=== PATIENT | male | born 1940 | race Caucasian/White ===

== ENCOUNTER → 2017-01-07 | Outpatient (CLI) | payer BC, MEDICARE | END | disposition home or self-care (01) | LOC: CFH 08:11 | PROVIDERS: ATTEND Internal Medicine Cardiovascular Disease | DX: I45.10 Unspecified right bundle-branch block (principal); R94.31 Abnormal electrocardiogram [ECG] [EKG]; Z95.5 Presence of coronary angioplasty implant and graft | CPT/HCPCS: 78452; 93017; A9502 ==

== ENCOUNTER 2017-01-21 11:30 | Day surgery (SDC) | payer MEDICAID, MEDICARE ==
[2017-01-20 14:46] VITALS: BP 146/95
[2017-01-20 15:39] LABS: HEMATOCRIT 52.5 % (39.2-51.8); WHITE BLOOD COUNT 8.6 x10^3/uL (3.4-10)
[~2017-01-21] VITALS: Ht 181.6 cm; Wt 93.1 kg
[~2017-01-21 11:30] MED LIST: ALLO100T30 PO; ASPI-496 PO; MULT-658 PO; ROSU20TA PO; WARF5TAB7 PO; WARF7.5T6 PO
[2017-01-21] MEDS ORDERED: SODIUM CHLORIDE 0.9% 1,000 ML IV SCH (12:13)
[2017-01-21] MEDS ORDERED: FENTANYL PF 100 MCG/2ML ONE (13:01)
[2017-01-21] MEDS ORDERED: MIDAZOLAM 1 MG/ML, 5ML ONE ×2 (13:01→13:03)
[2017-01-21] MEDS ORDERED: VERAPAMIL 2.5 MG/ML, 2ML ONE (13:03)
[2017-01-21] MEDS ORDERED: LIDOCAINE 2%, 20ML ONE (13:04)
[2017-01-21] MEDS ORDERED: HEPARIN 1,000 UNITS/ML, 10ML ONE (13:04)
[2017-01-21] MEDS ORDERED: SODIUM CHLORIDE 0.9% 500 ML IV SCH (14:30)
== END 2017-01-21 17:00 ==
LOC: CACL 11:30
PROVIDERS: ATTEND Internal Medicine Cardiovascular Disease
DX: I25.5 Ischemic cardiomyopathy (principal); E78.2 Mixed hyperlipidemia; I10 Essential (primary) hypertension; Z95.5 Presence of coronary angioplasty implant and graft; Z95.2 Presence of prosthetic heart valve; Z79.82 Long term (current) use of aspirin
CPT/HCPCS: 36415; 85025; 85610; 85730; 93306; 93454; 99156; C1894; J1644; J2250; J3010; J3490; Q9967

== ENCOUNTER → 2018-02-24 | Outpatient (CLI) | payer MEDICARE ==
[~2018-02-24] MED LIST changes: +WARF-36 PO; -WARF5TAB7 PO; +WARF7.5T46 PO; -WARF7.5T6 PO
== END | disposition home or self-care (01) ==
LOC: CFH 10:47
PROVIDERS: ATTEND Internal Medicine Cardiovascular Disease
DX: Z95.2 Presence of prosthetic heart valve (principal); E78.5 Hyperlipidemia, unspecified; I25.2 Old myocardial infarction
CPT/HCPCS: 93306

== ENCOUNTER → 2020-02-02 | Outpatient (CLI) | payer MEDICARE ==
[~2020-02-02] MED LIST changes: -ROSU20TA PO; +ROSU20TA2 PO
[2020-02-02 14:34] LABS: INTERNATIONAL NORMALIZED RATIO 2.22 (0.93-1.1); PROTHROMBIN TIME 23.1 Seconds (9.6-11.5)
== END | disposition home or self-care (01) ==
LOC: LAB 14:10
PROVIDERS: ATTEND Internal Medicine Cardiovascular Disease
DX: Z51.81 Encounter for therapeutic drug level monitoring (principal); Z79.01 Long term (current) use of anticoagulants; Z95.2 Presence of prosthetic heart valve
CPT/HCPCS: 36415; 85610

== ENCOUNTER → 2020-02-02 | Outpatient (CLI) | payer MEDICARE | END | disposition home or self-care (01) | LOC: CFH 12:50 | PROVIDERS: ATTEND Internal Medicine Cardiovascular Disease | DX: I34.8 Other nonrheumatic mitral valve disorders (principal); Z95.2 Presence of prosthetic heart valve; E78.5 Hyperlipidemia, unspecified; I25.2 Old myocardial infarction | CPT/HCPCS: 93306 ==

== ENCOUNTER 2020-09-16 09:17 | Outpatient (CLI) | payer MEDICARE, OTHER ==
[2020-09-16] MEDS ORDERED: L.AC1CAP6 PO (09:48)
[2020-09-16] MEDS ORDERED: MAGN400T36 PO (09:48)
[2020-09-16 10:31] LABS: BASOPHILS % (AUTO) 1 % (0-1); EOSINOPHILS % (AUTO) 3 % (1-7); LYMPHOCYTES % (AUTO) 29 % (22-44); MEAN CORPUSCULAR HEMOGLOBIN 33.1 pg (27.5-34.5); MEAN CORPUSCULAR HGB CONC 34.8 g/dL (33.2-36.2); MEAN PLATELET VOLUME 8.6 fL (7.4-10.4); MONOCYTES % (AUTO) 11 % (2-9); NEUTROPHILS % (AUTO) 56 % (42-75); PLATELET COUNT 205 x10^3/uL (130-400); RED BLOOD COUNT 5.11 x10^6/uL (4.38-5.82); RED CELL DISTRIBUTION WIDTH 13.9 % (9.4-14.8)
[2020-09-16 10:41] LABS: CALCIUM 8.8 mg/dL (8.5-10.1); CREATININE 0.94 mg/dL (0.7-1.3)
[2020-09-16 10:44] LABS: INTERNATIONAL NORMALIZED RATIO 1.57 (0.93-1.1); PROTHROMBIN TIME 16.7 Seconds (9.6-11.5)
[2020-09-16 10:49] LABS: ANION GAP 5 mmol/L (5-15); CHLORIDE 107 mmol/L (98-107)
[2020-09-16 10:59] LABS: MICROSCOPIC NOT IND
[2020-09-22] MEDS ORDERED: OXYC1TAB12 PO (07:52)
== END 2020-09-16 23:59 | disposition home or self-care (01) ==
LOC: STAR 09:17
PROVIDERS: ATTEND Neurological Surgery
DX: Z01.810 Encounter for preprocedural cardiovascular examination (principal); Z01.811 Encounter for preprocedural respiratory examination; Z01.818 Encounter for other preprocedural examination; R79.1 Abnormal coagulation profile; R94.31 Abnormal electrocardiogram [ECG] [EKG]; R82.90 Unspecified abnormal findings in urine; M54.16 Radiculopathy, lumbar region; M48.061 Spinal stenosis, lumbar region without neurogenic claudication; M51.37 Other intervertebral disc degeneration, lumbosacral region; M48.07 Spinal stenosis, lumbosacral region; M25.78 Osteophyte, vertebrae; Z95.0 Presence of cardiac pacemaker; Z20.822 Contact with and (suspected) exposure to COVID-19
CPT/HCPCS: 36415; 71046; 72110; 80048; 81003; 85025; 85610; 85730; 93005; U0003

== ENCOUNTER 2020-09-20 05:37 | Inpatient (IN) | payer MEDICARE, OTHER ==
[2020-09-19 14:06] LABS: INTERNATIONAL NORMALIZED RATIO 1.04 (0.93-1.1); PROTHROMBIN TIME 11.1 Seconds (9.6-11.5)
[~2020-09-20] VITALS: Ht 180.3 cm; Wt 100.8 kg
[~2020-09-20 05:37] MED LIST changes: +L.AC1CAP6 PO; +MAGN400T36 PO
[2020-09-20] MEDS ORDERED: EPINEPHRINE 1 MG/ML, 1ML ONE (06:22)
[2020-09-20] MEDS ORDERED: VANCOMYCIN 1,000 MG ONE (06:22)
[2020-09-20] MEDS ORDERED: BUPIVACAINE 0.25% ONE (06:22)
[2020-09-20] MEDS ORDERED: BACITRACIN 50,000 UNIT ONE (06:22)
[2020-09-20] MEDS ORDERED: BUPIVACAINE/PF 0.5% ONE (06:22)
[2020-09-20 06:28] VITALS: BP 133/60
[2020-09-20] MEDS ORDERED: LACTATED RINGERS 1,000 ML IV SCH (06:30)
[2020-09-20] MEDS ORDERED: CHLORHEXIDINE 15 ML UDC PO ONE (06:30)
[2020-09-20] MEDS ORDERED: FENTANYL PF 250 MCG/5ML ONE (06:47)
[2020-09-20] MEDS ORDERED: DEXAMETHASONE 4 MG/ML, 1ML ONE (06:48)
[2020-09-20] MEDS ORDERED: SUCCINYLCHOLINE 20 MG/ML, 10ML ONE (06:49)
[2020-09-20] MEDS ORDERED: ROCURONIUM 10MG/ML,5ML ONE (06:49)
[2020-09-20] MEDS ORDERED: EPHEDRINE 50 MG/ML, 1ML ONE (07:31)
[2020-09-20] MEDS ORDERED: FENTANYL PF 100 MCG/2ML ONE ×2 (08:45→10:00)
[2020-09-20] MEDS ORDERED: BUPIVACAINE/PF 0.25% EPIDPUSH ONE (08:48)
[2020-09-20] MEDS ORDERED: FENTANYL PF 100 MCG/2ML EPIDPUSH ONE (08:49)
[2020-09-20] MEDS ORDERED: NEOSTIGMINE 1 MG/ML, 10ML ONE (09:21)
[2020-09-20] MEDS ORDERED: GLYCOPYRROLATE 0.2MG/1ML, 5ML ONE (09:21)
[2020-09-20] MEDS ORDERED: SENNA/DOCUSATE TABLET PO PRN (10:00)
[2020-09-20] MEDS ORDERED: ACETAMINOPHEN 325 MG TABLET PO PRN (10:00)
[2020-09-20] MEDS ORDERED: HYDROcodone/APAP 10/325 MG TABLET PO PRN (10:00)
[2020-09-20] MEDS ORDERED: MEPERIDINE/PF 25MG/0.5ML IVPush PRN (10:00)
[2020-09-20] MEDS ORDERED: HYDROcodone/APAP 5/325 TABLET PO PRN (10:00)
[2020-09-20] MEDS ORDERED: LABETALOL 5MG/ML, 20ML IVPush PRN (10:00)
[2020-09-20] MEDS ORDERED: METHOCARBAMOL 1,000 MG in DEXTROSE 5% 100 ML IV ONE (10:00)
[2020-09-20] MEDS ORDERED: PROMETHAZINE 25 MG/ML, 1ML IM PRN (10:00)
[2020-09-20] MEDS ORDERED: PROMETHAZINE 12.5 MG SUPP PR PRN (10:00)
[2020-09-20] MEDS ORDERED: morphine SULFATE 10 MG/ML, 1ML IVPush PRN (10:00)
[2020-09-20] MEDS ORDERED: PHARMACY MAY ADJ FOR RENAL FX MC PRN (10:00)
[2020-09-20] MEDS ORDERED: MAGNESIUM HYDROXIDE 8%, 30ML UDC PO PRN (10:00)
[2020-09-20] MEDS ORDERED: hydrALAzine 20 MG/ML, 1ML IV PRN (10:00)
[2020-09-20] MEDS ORDERED: CYCLOBENZAPRINE 10 MG TABLET PO PRN (10:00)
[2020-09-20] MEDS ORDERED: PROMETHAZINE 25 MG/ML, 1ML IVPush PRN (10:00)
[2020-09-20] MEDS ORDERED: ALBUTEROL SULFATE 2.5 MG/3 ML NPPB PRN (10:00)
[2020-09-20] MEDS ORDERED: LABETALOL 5MG/ML, 20ML IV PRN (10:00)
[2020-09-20] MEDS ORDERED: DIPHENHYDRAMINE 50 MG/ML, 1ML IVPush PRN ×2 (10:00)
[2020-09-20] MEDS ORDERED: ONDANSETRON 2MG/ML, 2ML IVPush PRN ×2 (10:00)
[2020-09-20] MEDS ORDERED: FENTANYL PF 100 MCG/2ML IV PRN (10:00)
[2020-09-20] MEDS ORDERED: DIPHENHYDRAMINE 50 MG CAPSULE PO PRN (10:00)
[2020-09-20] MEDS ORDERED: HYDROmorphone 1 MG/ML, 1ML INJ IVPush PRN (10:00)
[2020-09-20] MEDS ORDERED: EPHEDRINE 50 MG/ML, 1ML IVPush PRN (10:00)
[2020-09-20] MEDS ORDERED: DIPHENHYDRAMINE 50 MG/ML, 1ML IM PRN (10:00)
[2020-09-20] MEDS ORDERED: OXYcodone 5 MG/5 ML ORAL.SOL UDC PO PRN (10:00)
[2020-09-20] MEDS: CEFAZOLIN PMX 1GM/50ML 50 ML IVPB SCH ×2 (11:44→18:28)
[2020-09-20 13:29] VITALS: BP 101/58
[2020-09-20] MEDS: OXYcodone/APAP 5/325MG TABLET PO PRN (18:28)
[2020-09-20] MEDS: NS + 20MEQ KCL 1,000 ML IV SCH (18:29)
[2020-09-20 18:39] VITALS: BP 100/52
[2020-09-20] MEDS: SODIUM CHLORIDE FLUSH 10ML SYR IVF SCH (21:00)
[2020-09-21 00:09] VITALS: BP 101/59
[2020-09-21] MEDS: NS + 20MEQ KCL 1,000 ML IV SCH ×3 (02:00→22:00)
[2020-09-21] MEDS: OXYcodone/APAP 5/325MG TABLET PO PRN ×7 (04:17→23:20)
[2020-09-21 06:40] VITALS: BP 104/61
[2020-09-21] MEDS: ENOXAPARIN 40 MG/0.4 ML SQ SCH (06:51)
[2020-09-21] MEDS: METHOCARBAMOL 750 MG TABLET PO PRN ×3 (08:34→17:54)
[2020-09-21] MEDS: ALLOPURINOL 100 MG TABLET PO SCH (08:34)
[2020-09-21] MEDS: LACTOBACILLUS CHEW TABLET PO SCH (08:34)
[2020-09-21] MEDS: MAGNESIUM OXIDE 400 MG TABLET PO SCH (08:34)
[2020-09-21] MEDS: SODIUM CHLORIDE FLUSH 10ML SYR IVF SCH ×2 (08:37→20:05)
[2020-09-21 12:25] VITALS: BP 97/63
[2020-09-21 19:41] VITALS: BP 108/68
[2020-09-22] MEDS: METHOCARBAMOL 750 MG TABLET PO PRN ×2 (02:03→11:27)
[2020-09-22 02:06] VITALS: BP 118/68
[2020-09-22] MEDS: OXYcodone/APAP 5/325MG TABLET PO PRN ×3 (03:51→11:27)
[2020-09-22] MEDS: ENOXAPARIN 40 MG/0.4 ML SQ SCH (06:32)
[2020-09-22 07:32] VITALS: BP 120/69
[2020-09-22] MEDS ORDERED: CYCL10TA2 PO (07:52)
[2020-09-22] MEDS ORDERED: OXYC1TAB14 PO (07:52)
[2020-09-22] MEDS ORDERED: ENOX40SY4 SQ (07:52)
[2020-09-22] MEDS: NS + 20MEQ KCL 1,000 ML IV SCH (08:03)
[2020-09-22] MEDS: ALLOPURINOL 100 MG TABLET PO SCH (08:09)
[2020-09-22] MEDS: LACTOBACILLUS CHEW TABLET PO SCH (08:09)
[2020-09-22] MEDS: MAGNESIUM OXIDE 400 MG TABLET PO SCH (08:09)
[2020-09-22] MEDS: SODIUM CHLORIDE FLUSH 10ML SYR IVF SCH (08:09)
[2020-09-22] MEDS ORDERED: TEMPLATE NON-FORMULARY MED. (Rosuvastatin Calcium** (Crestor**) 10 MG) PO SCH (09:00)
== END 2020-09-22 11:40 | disposition home or self-care (01) | DRG 517 ==
LOC: OUT 05:37 → ORIP 10:33 → 4NE 10:43 → DCLOUNGE 09-22 11:34
PROVIDERS: ADMIT Neurological Surgery; ATTEND Neurological Surgery
PROC: 01NR0ZZ Release Sacral Nerve, Open Approach (ICD-10-PCS; 2020-09-20)
PROC: 4A11X4G Monitoring of Peripheral Nervous Electrical Activity, Intraoperative, External Approach (ICD-10-PCS; 2020-09-20)
PROC: 01NB0ZZ Release Lumbar Nerve, Open Approach (ICD-10-PCS; principal; 2020-09-20 07:00)
DX: M48.062 Spinal stenosis, lumbar region with neurogenic claudication (principal); Z72.89 Other problems related to lifestyle; M48.07 Spinal stenosis, lumbosacral region
CPT/HCPCS: 36415; 72100; 85610; 85730; 95938; 95941; G0378; J0171; J0690; J1100; J1650; J2710; J3010; J3370; J3480; J0330; J2270; J7120